=== PATIENT | female | born 1965 | race Caucasian/White ===

== ENCOUNTER 2017-07-15 13:26 | Emergency (ER) | payer MEDICAID ==
[~2017-07-15] VITALS: Ht 160 cm; Wt 63.5 kg
[2017-07-15] MEDS ORDERED: METOPROLOL SUCC50 MG PO (14:31)
[2017-07-15] MEDS ORDERED: PANTOPRAZOLE SO40 MG PO (14:31)
[2017-07-15] MEDS ORDERED: ESCITALOPRAM OX20 MG PO (14:36)
[2017-07-15] MEDS ORDERED: VITAMIN B-1100 MG PO (14:37)
[2017-07-15] MEDS ORDERED: GEMFIBROZIL600 MG PO (14:38)
[2017-07-15] MEDS ORDERED: LEVETIRACETAM1000 MG PO (14:38)
[2017-07-15] MEDS ORDERED: GABAPENTIN300 MG PO (14:38)
[2017-07-15] MEDS ORDERED: HYDROXYZINE PAM25 MG PO (14:39)
[2017-07-16] MEDS ORDERED: CHLORDIAZEPOXID25 MG PO (18:42)
== END 2017-07-15 16:01 | disposition home or self-care (01) ==
LOC: ED 13:26
DX: F10.129 Alcohol abuse with intoxication, unspecified (principal); R56.9 Unspecified convulsions; F17.200 Nicotine dependence, unspecified, uncomplicated; Z88.2 Allergy status to sulfonamides; Z79.899 Other long term (current) drug therapy; Y90.8 Blood alcohol level of 240 mg/100 ml or more
CPT/HCPCS: 80053; 82140; 85025; 96365; 99284; G0480; J1953; J7030

== ENCOUNTER 2017-07-16 15:16 | Emergency (ER) | payer MEDICAID ==
[~2017-07-16] VITALS: Ht 160 cm; Wt 63.5 kg
--- OUTSIDE RECORDS SUMMARY | ~2017-07-16 | XMS | Clinical Summary ---
Demographics + + + | Address | [address] | | | [place] [address] | + + + | Home Phone | | + + + | Preferred Language | Unknown | + + + | Marital Status | Single | + + + | Jain Affiliation | Unknown | + + + | Race | White | + + + | Ethnic Group | Other Race | + + + Author + + + | Author | [facility] | + + + | Organization | [facility] | + + + | Address | Unknown | + + + | Phone | Unavailable | + + + Care Team Providers + +------+-------+ | Care Public Health Specialist Name | Role | Phone | + +------+-------+ | Janiya WilderP | PP | tel | + +------+-------+ Source Comments JOHN is fully live on both [facility] and [facility] InPatient.[facility] & [facility] Allergies Not on File Current [...] + + | INFLUENZA VACCINE | | | | | (FLU SHOT) | 7 | | | + + + + + Results Not on filefrom Last 3 Months"
--- OUTSIDE RECORDS SUMMARY | ~2017-07-16 | XMS | Clinical Summary ---
Demographics + + + | Address | [address] | | | [place] [address] | + + + | Home Phone | | + + + | Preferred Language | Unknown | + + + | Marital Status | Single | + + + | Judaism Affiliation | Unknown | + + + | Race | White | + + + | Ethnic Group | Other Race | + + + Author + + + | Author | [facility] | + + + | Organization | [facility] | + + + | Address | Unknown | + + + | Phone | Unavailable | + + + Care Team Providers + +------+-------+ | Care Swine Extension Field Specialist Name | Role | Phone | + +------+-------+ | Janiya WilderP | PP | tel | + +------+-------+ Source Comments JOHN is fully live on both [facility] and [facility] InPatient.[facility] & [facility] Allergies Not on File Current Medications Not [...]
[~2017-07-16 15:16] MED LIST: ESCITALOPRAM OX20 MG PO; GABAPENTIN300 MG PO; GEMFIBROZIL600 MG PO; HYDROXYZINE PAM25 MG PO; LEVETIRACETAM1000 MG PO; METOPROLOL SUCC50 MG PO; PANTOPRAZOLE SO40 MG PO; VITAMIN B-1100 MG PO
[2017-07-16] MEDS ORDERED: CHLORDIAZEPOXID25 MG PO (18:42)
== END 2017-07-16 17:55 | disposition home or self-care (01) ==
LOC: ED 15:16
DX: G40.909 Epilepsy, unspecified, not intractable, without status epilepticus (principal); F10.239 Alcohol dependence with withdrawal, unspecified; F17.200 Nicotine dependence, unspecified, uncomplicated; Z88.2 Allergy status to sulfonamides; Z79.899 Other long term (current) drug therapy
CPT/HCPCS: 96361; 96365; 99284; J1953; J7030

== ENCOUNTER 2017-10-15 19:04 | Emergency (ER) | payer MEDICAID ==
[~2017-10-15] VITALS: Ht 160 cm; Wt 63.5 kg
--- OUTSIDE RECORDS SUMMARY | ~2017-10-15 | XMS | Clinical Summary ---
Demographics + + + | Address | [address] | | | [place] [address] | + + + | Home Phone | | + + + | Preferred Language | Unknown | + + + | Marital Status | Single | + + + | Alevism Affiliation | Unknown | + + + | Race | White | + + + | Ethnic Group | Other Race | + + + Author + + + | Author | [facility] | + + + | Organization | [facility] | + + + | Address | Unknown | + + + | Phone | Unavailable | + + + Care Team Providers + +------+ + | Care Sales Route Driver Name | Role | Phone | + +------+ + | Janiya WilderP | PP | | + +------+ + Source Comments JOHN is fully live on both [facility] and [facility] InPatient.[facility] & [facility] Allergies Not on File Current Medications Not on file Active Problems Not on file Family History + + +------+ + | Medical History | Relation | Name | Comments | + + +------+ + | Alcohol/Drug | Maternal | | Alcoholism | | | Grandmoth | | | | | er | | | + + +------+ + | Diabetes | Maternal | | Type 2 | | | Grandmoth | | | | | er | | | + + +------+ + + +------+--------+ + | Relation | Name | Status | Comments | + +------+--------+ + | Maternal Grandmother | | | | + +------+--------+ + Social History + +-------+ +--------+------+ | Tobacco Use | Types | Packs/Day | Years | Date | | | | | Used | | + +-------+ +--------+------+ | Never Smoker | | | | | + +-------+ +--------+------+ + + + | Sex Assigned at | Date Recorded | | | | + + + | Not on file | | + + + Plan of Treatment + + + + + | Health Maintenance | Due Date | Last Done | Comments | + + + + + | INFLUENZA VACCINE | | 05/02/2013 | | | (FLU SHOT) | 8 | | | + + + + + Results Not on filefrom Last 3 Months"
--- OUTSIDE RECORDS SUMMARY | ~2017-10-15 | XMS | Clinical Summary ---
Demographics + + + | Address | [address] | | | [place] [address] | + + + | Home Phone | | + + + | Preferred Language | Unknown | + + + | Marital Status | Single | + + + | Nondenominational Affiliation | 1041 | + + + | Race | Unknown | + + + | Ethnic Group | Unknown | + + + Author + + + | Author | [facility] | | | and [place] | + + + | Organization | [facility] | | | and [place] | + + + | Address | Unknown | + + + | Phone | Unavailable | + + + Support + + + + + | Name | Relationship | Address | Phone | + + + + + | Reynaldo Vasquez | ECON | [place] | | | | | [address] | | + + + + + | Tayla Vasquez | ECON | [place] | | | | | [address] | | + + + + + Care Team Providers + +------+ + | Care Tray Casting Machine Operator Name | Role | Phone | + +------+ + | Janiya Wilder NP | PP | | + +------+ + Allergies No Known Allergies Current Medications + + +--------+---------+------+------+-------+ | Prescription | Sig. | Disp. | Refills | Star | End | Statu | | | | | | t | Date | s | | | | | | Date | | | + + +--------+---------+------+------+-------+ | METOPROLOL | Take by mouth. | | | | | Activ | | TARTRATE PO | | | | | | e | + + +--------+---------+------+------+-------+ | ESCITALOPRAM | Take by mouth. | | | | | Activ | | OXALATE PO | | | | | | e | + + +--------+---------+------+------+-------+ | levETIRAcetam | Take 1 tablet by | 60 | 0 | 11/2 | | Activ | | (KEPPRA) 500 mg | mouth 2 times daily. | tablet | | 8/20 | | e | | tablet | | | | 15 | | | + + +--------+---------+------+------+-------+ Active Problems Not on file Social History + +-------+ +--------+------+ | Tobacco Use | Types | Packs/Day | Years | Date | | | | | Used | | + +-------+ +--------+------+ | Never Smoker | | | | | + +-------+ +--------+------+ + +---+---+---+ | Smokeless Tobacco: | | | | | Never Used | | | | + +---+---+---+ + + +---------+ + | Alcohol Use | Drinks/We | oz/Week | Comments | | | ek | | | + + +---------+ + | Yes | 21 | 12.6 | | | | Glasses | | | | | of wine | | | + + +---------+ + + + + | Sex Assigned at | Date Recorded | | | | + + + | Not on file | | + + + Last Filed Vital Signs + + + + | Vital Sign | Reading | Time Taken | + + + + | Blood Pressure | 100/76 | 05/30/20151814 PST | + + + + | Pulse | 107 | 05/30/20151814 PST | + + + + | Temperature | 36.7 C (98.1 F) | 05/30/20151501 PST | + + + + | Respiratory Rate | 15 | 05/30/20151501 PST | + + + + | Oxygen Saturation | 98% | 05/30/2015 1815 PST | + + + + | Inhaled Oxygen | - | - | | Concentration | | | + + + + | Weight | 61.2 kg (135 lb) | 05/30/20151501 PST | + + + + | Height | 175.3 cm (5' 9") | 05/30/20151501 PST | + + + + | Body Mass Index | 19.94 | 05/30/20151501 PST | + + + + Plan of Treatment + + + + + | Health Maintenance | Due Date | Last Done | Comments | + + + + + | Hepatitis C | | | | | Screening | 5 | | | + + + + + | Vaccine: | | | | | Dtap/Tdap/Td (1 - | 4 | | | | Tdap) | | | | + + + + + | CERVICAL CANCER | | | | | SCREENING (PAP EVERY | 6 | | | | 3 YEARS 21-64 ) | | | | + + + + + | BREAST CANCER | | | | | SCREENING (MAMM Q2 | 5 | | | | YEARS 50-74) | | | | + + + + + | COLON CANCER | | | | | SCREENING | 5 | | | | (COLONOSCOPY EVERY | | | | | 10 YEARS 50-75) | | | | + + + + + | Vaccine: Influenza | | | | | (Season Ended) | 8 | | | + + + + + Results Not on filefrom Last 3 Months Insurance + +--------+ +--------+-------+---------+ | Payer | Benefi | Subscriber | Type | Phone | Address | | | t Plan | ID | | | | | | / | | | | | | | Group | | | | | + +--------+ +--------+-------+---------+ | PACIFICSOURCE | PACIFI | xxxxxxxx | Medica | | | | MEDICAID HMO | CSOURC | | id | | | | | E MDCD | | | | | | | HMO | | | | | + +--------+ +--------+-------+---------+ + +--------+ +--------+ + + | Guarantor Name | Accoun | Relation to | Date | Phone | Billing Address | | | t Type | Patient | of | | | | | | | | | | + +--------+ +--------+ + + | ERICA PRINCE | Person | Self [birth year] | Home: | [address] | | | al/Fam | | 1965 | [phone] [place] [address] | | | [place] | | | [phone] | | + +--------+ +--------+ + +
--- OUTSIDE RECORDS SUMMARY | ~2017-10-15 | XMS | Clinical Summary ---
Demographics + + + | Address | [address] | | | [place] [address] | + + + | Home Phone | | + + + | Preferred Language | Unknown | + + + | Marital Status | Single | + + + | Advent Affiliation | Unknown | + + + | Race | White | + + + | Ethnic Group | Other Race | + + + Author + + + | Author | [facility] | + + + | Organization | [facility] | + + + | Address | Unknown | + + + | Phone | Unavailable | + + + Care Team Providers + +------+ + | Care Stock Replenisher Name | Role | Phone | + +------+ + | Janiya WilderP | PP | | + +------+ + Source Comments [facility] is fully live [facility] and [facility] InPatient.[facility] & [facility] Allergies Not on File Current Medications Not [...]
--- OUTSIDE RECORDS SUMMARY | ~2017-10-15 | XMS | Clinical Summary ---
Demographics + + + | Address | [address] | | | [place] [address] | + + + | Home Phone | | + + + | Preferred Language | Unknown | + + + | Marital Status | Single | + + + | Holiness Affiliation | 1041 | + + + | Race | Unknown | + + + | Ethnic Group | Unknown | + + + Author + + + | Author | [facility] | | | and [place] | + + + | Organization | [facility] | | | and [place] | + + + | Address | Unknown | + + + | Phone | Unavailable | + + + Support + + + + + | Name | Relationship | Address | Phone | + + + + + | Reynaldo Vasquez | ECON | [place] | | | | | [address] | | + + + + + | Tayla Vasquez | ECON | [place] | | | | | [address] | | + + + + + Care Team Providers + +------+ + | Care Turning Sander Tender Name | Role | Phone | + [...] Self | [birth year] | Home: | [address] | | | al/Fam | | 1965 | [phone] | [place] [address] | | | [place] | | | [phone] | | + +--------+ +--------+ + +
[~2017-10-15 19:04] MED LIST changes: +CHLORDIAZEPOXID25 MG PO
== END 2017-10-15 22:01 | disposition home or self-care (01) ==
LOC: ED 19:04
DX: S30.1XXA Contusion of abdominal wall, initial encounter (principal); K59.00 Constipation, unspecified; G40.909 Epilepsy, unspecified, not intractable, without status epilepticus; F17.200 Nicotine dependence, unspecified, uncomplicated; Z88.2 Allergy status to sulfonamides; Z79.899 Other long term (current) drug therapy; X58.XXXA Exposure to other specified factors, initial encounter
CPT/HCPCS: 74177; 80053; 81001; 83690; 85025; 96374; 99284; J2405; Q9967